=== PATIENT | male | born 1965 | race Caucasian/White ===

== ENCOUNTER 2021-11-30 15:55 | Emergency (ER) | payer OTHER, SELFPAY ==
[2021-11-30 16:04] VITALS: BP 182/120; PULSE 102; RESP 18; TEMP 36.8; O2SAT 100
--- NOTE | 2021-11-30 16:06 | ED.GENADULT ---
HPI - General Adult General Chief complaint: Upper Respiratory Infection Stated complaint: sob/exposed to covid Time Seen by Provider: 11/30/21 16:06 Source: patient Mode of arrival: ambulatory Limitations: no limitations History of Present Illness HPI narrative: 55-year-old male patient presents to the [facility] with complaints of COPD, shortness of breath. Patient was seen in the ER on November 17 at that time and was given a COVID test as well as an x-ray which was both negative. Patient was treated for COPD exacerbation with inhaler and steroids at that time. Patient felt like his shortness of breath was not getting better so he called his doctor and was prescribed doxycycline on November 25. Patient's was just admitted to the hospital yesterday with COVID-19. Patient states he has not been vaccinated. Patient states his shortness of breath is not worse but not getting better at this time. Patient not having any other symptoms at this time. Patient states he does have a nebulizer at home as well. Patient states he did forget to take his blood pressure medication today. Related Data Home Medications Medication Instructions Recorded Confirmed albuterol 90 mcg INHALATION Q4H PRN 11/30/21 11/30/21 amlodipine 10 mg PO DAILY 11/30/21 11/30/21 aspirin [Adult Low Dose Aspirin] 81 mg PO DAILY 11/30/21 11/30/21 atorvastatin 40 mg PO DAILY 11/30/21 11/30/21 doxycycline hyclate 100 mg PO BID 11/30/21 11/30/21 hydralazine 100 mg PO BID 11/30/21 11/30/21 hydrochlorothiazide 25 mg PO DAILY 11/30/21 11/30/21 ipratropium bromide 2 spray INTRANASAL TID 11/30/21 11/30/21 metoprolol succinate 100 mg PO DAILY 11/30/21 11/30/21 sertraline 100 mg PO DAILY 11/30/21 11/30/21 spironolactone 25 mg PO DAILY 11/30/21 11/30/21 trazodone 50 mg PO HS 11/30/21 11/30/21 Allergies Allergy/AdvReac Type Severity Reaction Status Date / Time Penicillins Allergy Swelling Verified 11/30/21 16:16 Review of Systems Review of Systems: CONSTITUTIONAL: Denies fever, chills, or sweats. EYES: Denies visual changes, redness, or discharge. ENT: Denies rhinorrhea, congestion, sore throat, or otalgia. CARDIOVASCULAR: Denies chest pain, palpitations, or edema. RESPIRATORY: Denies cough, positive dyspnea. GASTROINTESTINAL: Denies abdominal pain, nausea, vomiting, or diarrhea. GENITOURINARY: Denies dysuria or hematuria. SKIN: Denies rash or itching. MUSCULOSKELETAL: Denies back pain, joint pain, or myalgia. NEUROLOGIC: Denies headache, numbness, or weakness. PSYCHIATRIC: Denies anxiety or depression. [facility] Past Medical History Medical History (Updated 11/30/21 @ 16:25 by FRANCISCO Dey) COPD (chronic obstructive pulmonary disease) Emphysema lung Hypertension Comments At the time of my signature I agree with nursing past medical history, surgical, social, and family history. There is no relevant family history pertinent to the presenting complaint. Exam Narrative: GENERAL: Well-appearing, well-nourished, and in no acute distress. HEAD: Normocephalic, atraumatic. EYES: PERRLA and EOMI. ENT: Nares clear, no rhinorrhea or epistaxis. Mucous membranes moist. Posterior pharynx with no erythema, tonsillar joint, exudates or lesions present. Bilateral TMs are clear no erythema or foreign bodies to the canal. NECK: Supple. No lymphadenopathy CHEST: Clear to auscultation. No respiratory distress. Patient able to talk in clear complete sentences. HEART: Regular rate and rhythm. No murmur heard. Normal peripheral pulses. ABDOMEN: Soft, nontender, nondistended, normal active bowel sounds. EXTREMITIES: Normal range of motion. No edema. SKIN: Warm, dry, no rash. NEURO: No focal deficits. Alert and oriented x3. Course Course Level of Care: Express Care Visit Vital Signs Vital signs: Vital Signs Temperature 36.8 C 11/30/21 16:04 Pulse Rate 102 H 11/30/21 16:04 Respiratory Rate 18 11/30/21 16:04 Blood Pressure 182/120 H 11/30/21 16:04 Pulse Oxim
[2021-11-30 16:21] VITALS: BP 182/120; PULSE 102; RESP 18; TEMP 36.8; O2SAT 100
== END 2021-11-30 16:26 | disposition home or self-care (01) ==
PROVIDERS: Emergency Provider Nurse Practitioner Family; PCP Internal Medicine
DX: J06.9 Acute upper respiratory infection, unspecified (principal); J44.9 Chronic obstructive pulmonary disease, unspecified; I10 Essential (primary) hypertension
CPT/HCPCS: 99211; G0463